=== PATIENT | female | born 1990 | race Caucasian/White ===

== ENCOUNTER 2017-08-14 20:19 | Inpatient (IN) | payer BC, OTHER ==
[2017-08-14] MEDS ORDERED: XYLOCAINE 1% HCL 20 ML MDV IJ PRN (20:24)
[2017-08-14] MEDS ORDERED: OMNIPEN 2 GM / NACL 100ML 100 ML IV ONE (20:24)
[2017-08-14] MEDS ORDERED: TYLENOL EXTRA STRENGTH 500 MG PO PRN (20:24)
[2017-08-14] MEDS ORDERED: Zofran 4 MG/2 ML VIAL IV PRN (20:24)
[2017-08-14] MEDS ORDERED: PITOCIN 30 UNITS/ LR 500 ML 500 ML IV SCH (20:30)
[2017-08-14] MEDS ORDERED: Lactated Ringers 1,000 ML IV SCH (20:30)
[2017-08-14 21:24] LABS: BASOPHIL % 0.4 % (0.0-0.4); Eosinophil % 1.3 % (0.00-5.0); Granulocytes % 71.1 % (36.0-66.0); Lymphocytes % 20.7 % (24.0-44.0); Mean Cell Volume 84.2 fl (78-100); Mean Platelet Volume 9.3 fl (6-9.5); Monocytes % 6.5 % (0.0-12.0); Platelet Count 303 K/mm3 (150-450); Red Blood Count 4.17 M/mm3 (4.1-5.4); Red Cell Distribution Width 14.9 % (11.5-14.0); White Blood Count 9.4 K/mm3 (4.0-10.5)
[2017-08-15] MEDS: OMNIPEN 1GM / NaCl 100ML 100 ML IV SCH ×3 (01:54→10:00)
[2017-08-15] MEDS ORDERED: OB EPIDURAL NAROPIN/SUFENTANIL IN NACL EPIDURAL PRN (02:09)
[2017-08-15] MEDS ORDERED: Ephedrine Sulfate 50 MG/ML IV PRN (02:09)
[2017-08-15] MEDS ORDERED: Lactated Ringers 1,000 ML IV ONE (02:09)
[2017-08-15] MEDS ORDERED: BRETHINE 1 MG/ML SQ PRN (02:13)
[2017-08-15] MEDS ORDERED: PITOCIN 30 UNITS/ LR 500 ML 500 ML IV SCH (02:30)
[2017-08-15 03:55] VITALS: O2SAT 98
[2017-08-15] MEDS ORDERED: Sodium Chloride 0.9% 1000 ML 1,000 ML ONE (11:13)
[2017-08-15] MEDS ORDERED: PHENYLEPHRINE HCL IV ONE (11:30)
[2017-08-15] MEDS ORDERED: Cleocin Phosphate IV 600 MG/4 ML IV SCH (13:30)
[2017-08-15] MEDS ORDERED: TYLENOL EXTRA STRENGTH 500 MG PO PRN (14:52)
[2017-08-15] MEDS ORDERED: Dulcolax 10 MG SUPP PR PRN (14:52)
[2017-08-15] MEDS ORDERED: CORTISONE 1% CREAM TP PRN (14:52)
[2017-08-15] MEDS ORDERED: Adacel Vial IM ONE (14:52)
[2017-08-15] MEDS ORDERED: Anucort-HC SUPPOSITORY PR PRN (14:52)
[2017-08-15] MEDS ORDERED: Mylicon 80MG PO PRN (14:52)
[2017-08-15] MEDS ORDERED: NORCO 5/325 MG PO PRN (14:52)
[2017-08-15] MEDS ORDERED: TUCKS TP PRN (14:52)
[2017-08-15] MEDS ORDERED: Ambien 10 MG PO PRN (14:52)
[2017-08-15] MEDS: CLINDAMYCIN-D5W 600 MG/50 ML*** 600 MG/50 ML BAG IV SCH ×2 (14:56→22:12)
[2017-08-15 18:08] LABS: BASOPHIL % 0.2 % (0.0-0.4); Eosinophil % 0.5 % (0.00-5.0); Granulocytes % 81.8 % (36.0-66.0); Lymphocytes % 11.8 % (24.0-44.0); Mean Corpuscular Hemoglobin 27.1 pg (26-32); Mean Platelet Volume 8.9 fl (6-9.5); Monocytes % 5.7 % (0.0-12.0); Platelet Count 299 K/mm3 (150-450); Red Blood Count 3.21 M/mm3 (4.1-5.4); White Blood Count 14.6 K/mm3 (4.0-10.5)
[2017-08-15] MEDS: Dermoplast Spray TP PRN ×2 (18:56→21:29)
[2017-08-15] MEDS: LANSINOH 40 GM TOP PRN ×2 (18:57→21:29)
[2017-08-15] MEDS: Colace 100 MG PO SCH (21:16)
[2017-08-15] MEDS: MOTRIN 400 MG PO PRN (21:17)
[2017-08-16 06:01] LABS: BASOPHIL % 0.4 % (0.0-0.4); Eosinophil % 2.2 % (0.00-5.0); Granulocytes % 72.3 % (36.0-66.0); Lymphocytes % 18.1 % (24.0-44.0); Mean Cell Volume 85.8 fl (78-100); Mean Platelet Volume 9.2 fl (6-9.5); Platelet Count 250 K/mm3 (150-450); Red Blood Count 2.75 M/mm3 (4.1-5.4); Red Cell Distribution Width 14.9 % (11.5-14.0); White Blood Count 9.8 K/mm3 (4.0-10.5)
[2017-08-16 06:26] LABS: Mean Corpuscular Hemoglobin 27.2 pg (26-32)
[2017-08-16] MEDS ORDERED: FERREX 150 PO SCH ×2 (10:00→22:00)
[2017-08-16] MEDS: Colace 100 MG PO SCH ×2 (10:35→21:04)
[2017-08-16] MEDS: CLINDAMYCIN-D5W 600 MG/50 ML*** 600 MG/50 ML BAG IV SCH ×2 (10:39→16:10)
[2017-08-16] MEDS: MOTRIN 400 MG PO PRN (13:27)
[2017-08-17 05:40] LABS: BASOPHIL % 0.8 % (0.0-0.4); Eosinophil % 3.6 % (0.00-5.0); Granulocytes % 63.9 % (36.0-66.0); Lymphocytes % 23.9 % (24.0-44.0); Mean Cell Volume 86.9 fl (78-100); Mean Corpuscular Hemoglobin 27.3 pg (26-32); Mean Platelet Volume 9.2 fl (6-9.5); Monocytes % 7.8 % (0.0-12.0); Platelet Count 253 K/mm3 (150-450); Red Blood Count 2.89 M/mm3 (4.1-5.4); Red Cell Distribution Width 14.9 % (11.5-14.0); White Blood Count 8.4 K/mm3 (4.0-10.5)
[2017-08-17 11:58] VITALS: BP 123/63; PULSE 89
== END 2017-08-17 11:55 | disposition home or self-care (01) | DRG 775 ==
LOC: OBSVTOIN 20:19 → OB 20:19
PROVIDERS: ADMIT Family Medicine; ATTEND Family Medicine
PROC: 10E0XZZ Delivery of Products of Conception, External Approach (ICD-10-PCS; principal; 2017-08-15)
DX: O80 Encounter for full-term uncomplicated delivery (principal); Z37.0 Single live birth; Z3A.39 39 weeks gestation of pregnancy; D50.9 Iron deficiency anemia, unspecified
CPT/HCPCS: 01967; 36415; 80307; 85025; 87086; 88307; 90471; 90715; G0378; J0290; J2370; J2590; J2795; A9270-GY